=== PATIENT | female | born 1960 | race Caucasian/White ===

== ENCOUNTER 2017-08-24 00:30 | Emergency (ER) | payer OTHER ==
[~2017-08-24] VITALS: Ht 157.5 cm; Wt 56.8 kg
[2017-08-24 00:39] VITALS: BP 165/107; Ht 157.5 cm; Wt 56.8 kg
== END 2017-08-24 01:20 | disposition left against medical advice (07) ==
LOC: ED 00:30
DX: Z53.21 Procedure and treatment not carried out due to patient leaving prior to being seen by health care provider (principal)